=== PATIENT | female | born 1995 | race Caucasian/White ===

== ENCOUNTER 2023-02-14 08:29 | Emergency (ER) | payer SELFPAY ==
[2023-02-14 08:39] VITALS: BP 127/75; PULSE 82; RESP 18; TEMP 99.4; BMI 31.7
[2023-02-14 09:38] LABS: PH,URINE 6.5 (5.0-8.0); URINE APPEARANCE CLEAR; URINE BILIRUBIN NEGATIVE (NEGATIVE); URINE COLOR YELLOW; URINE GLUCOSE (UA) NEGATIVE (NEGATIVE); URINE KETONE NEGATIVE (NEGATIVE); URINE LEUK ESTERASE NEGATIVE (NEGATIVE); URINE NITRITE NEGATIVE (NEGATIVE); URINE PROTEIN NEGATIVE (NEGATIVE)
[2023-02-14] MEDS ORDERED: KETOROLAC TROMETHAMINE 30 MG/1 ML VIAL IM ONE (09:48)
== END 2023-02-14 09:54 | disposition home or self-care (01) ==
LOC: JER 08:29 → JERFT 08:29
DX: L56.8 Other specified acute skin changes due to ultraviolet radiation (principal); M79.601 Pain in right arm; M79.602 Pain in left arm; R22.33 Localized swelling, mass and lump, upper limb, bilateral
CPT/HCPCS: 81003; 84703; 87086; 99283-25